=== PATIENT | male | born 1985 | race Caucasian/White ===

== ENCOUNTER 2020-11-06 20:56 | Emergency (ER) | payer OTHER ==
[~2020-11-06] VITALS: Ht 190.5 cm; Wt 106.6 kg
[2020-11-06] MEDS ORDERED: ATOR10TA PO (21:19)
[2020-11-06] MEDS ORDERED: TIOT18CA4 IH (21:19)
[2020-11-06] MEDS ORDERED: FERR324T4 PO (21:19)
[2020-11-06] MEDS ORDERED: PANT40TA2 PO (21:19)
[2020-11-06] MEDS ORDERED: GABA-534 PO (21:19)
[2020-11-06] MEDS ORDERED: NITR0.4T48 SL (21:19)
[2020-11-06] MEDS ORDERED: HYDR-500 PO (21:19)
[2020-11-06] MEDS ORDERED: DULO60CA45 PO (21:19)
[2020-11-06] MEDS ORDERED: MONT10TA22 PO (21:19)
[2020-11-06] MEDS ORDERED: ISOS60TA PO (21:19)
[2020-11-06] MEDS ORDERED: ONDA4TAB8 PO (21:19)
[2020-11-06] MEDS ORDERED: DOCU-141 PO (21:19)
[2020-11-06] MEDS ORDERED: SOTA80TA PO (21:19)
[2020-11-06] MEDS ORDERED: LEVO150C4 PO (21:19)
[2020-11-06] MEDS ORDERED: DIGO125T PO (21:19)
[2020-11-06] MEDS ORDERED: DIPH25CA83 PO (21:19)
[2020-11-06] MEDS ORDERED: CARV6.252 PO (21:19)
[2020-11-06] MEDS ORDERED: ALBU90AE IH (21:19)
[2020-11-06] MEDS ORDERED: FLUT1DIS27 IH (21:19)
[2020-11-06] MEDS ORDERED: FOLI1TAB16 PO (21:19)
[2020-11-06] MEDS ORDERED: APIX5TAB PO (21:19)
[2020-11-06 22:03] LABS: BASOPHILS % (AUTO) 0.2 % (0.0-2.0); EOSINOPHILS % (AUTO) 0.1 % (0.0-7.0); HEMATOCRIT 33.9 % (36.7-47.1); HEMOGLOBIN 10.9 g/dL (12.5-16.3); LYMPHOCYTES % (AUTO) 11.3 % (20.5-51.5); MEAN CORPUSCULAR HEMOGLOBIN 27.5 uug (23.8-33.4); MEAN CORPUSCULAR HGB CONC 32 g/dL (32.5-36.3); MEAN CORPUSCULAR VOLUME 85.5 fL (73.0-96.2); MONOCYTES # (AUTO) 0.6 K/uL (2.0-10.0); MONOCYTES % (AUTO) 7.1 % (0.0-11.0); NEUTROPHILS # (AUTO) 7.5 K/uL (1.8-8.9); NEUTROPHILS % (AUTO) 81.3 % (38.5-71.5); PLATELET COUNT (AUTO) 170 K/uL (152-348); RED BLOOD CELL COUNT(AUTO) 3.97 MIL/uL (4.06-5.63); WHITE BLOOD COUNT (AUTO) 9.2 K/uL (3.6-10.2)
[2020-11-06 22:09] LABS: CREATININE 1.3 mg/dL (0.6-1.3); POTASSIUM 3.9 mmol/L (3.5-5.1)
[2020-11-06 22:15] LABS: BILIRUBIN,DIRECT 0.1 mg/dL (0.0-0.2); BILIRUBIN,TOTAL 0.4 mg/dL (0.2-1.0); TOTAL PROTEIN, SERUM 6.2 g/dL (6.4-8.2)
--- NOTE | 2020-11-07 01:39 | NUR ---
Patient does not wish to proceed with medical care recommended by Dr. Westfall. Patient given information related to possible complications, up to and including , which could occur as a result of leaving the hospital at this time. Patient verbalizes understanding of risks involved due to leaving against medical advice. Patient has signed AMA form.
[2020-11-07 02:20] VITALS: BP 135/78
== END 2020-11-07 01:40 | disposition left against medical advice (07) ==
LOC: ER 20:56
DX: R07.9 Chest pain, unspecified (principal); F45.8 Other somatoform disorders; R53.1 Weakness; Z82.49 Family history of ischemic heart disease and other diseases of the circulatory system; N20.0 Calculus of kidney; Z96.642 Presence of left artificial hip joint; M61.9 Calcification and ossification of muscle, unspecified; Z95.0 Presence of cardiac pacemaker; D64.9 Anemia, unspecified; I25.2 Old myocardial infarction; Z86.73 Personal history of transient ischemic attack (TIA), and cerebral infarction without residual deficits; E78.5 Hyperlipidemia, unspecified; Q87.40 Marfan syndrome, unspecified; Z86.711 Personal history of pulmonary embolism; Z90.49 Acquired absence of other specified parts of digestive tract; Z95.828 Presence of other vascular implants and grafts; Z79.01 Long term (current) use of anticoagulants; Z79.899 Other long term (current) drug therapy
CPT/HCPCS: 36415; 70030-TC; 70450; 71250; 85025; 85730; 93005; A4663